=== PATIENT | female | born 1995 | race American Indian/Alaskan Native ===

== ENCOUNTER 2021-07-29 22:09 | Emergency (ER) | payer OTHER ==
[2021-07-29 22:53] VITALS: BP 103/63
[2021-07-29] MEDS ORDERED: LORazepam 2 MG/ML VIAL ONE (23:39)
[2021-07-30] MEDS ORDERED: ACETAMINOPHEN 500 MG TAB PO ONE (00:26)
[2021-07-30] MEDS ORDERED: SODIUM CHLORIDE 0.9% 1000 ML 1,000 ML IV ONE (00:26)
[2021-07-30] MEDS ORDERED: dexAMETHasone 20 MG/5 ML VIAL IV ONE (00:26)
--- NOTE | 2021-07-30 00:33 | Emergency Department Report ---
ED General Adult HPI - General Chief complaint: Headache Stated complaint: MIGRAINE/FAINT Time Seen by Provider: 07/30/21 00:03 Source: patient Mode of arrival: Ambulatory Limitations: No Limitations - History of Present Illness Initial comments: 25-year-old female patient presents emergency department with complaints of a headache starting this morning. No preceding fall, trauma, or injury. Pain is localized to the left parietal area. Patient has experienced similar headaches on prior occasions and states that these headaches typically resolve with Tylenol and/or Goody powder. However, patient took a Goody powder earlier today with no relief. The headache has been constant since onset and consistent in intensity since onset. Patient is not anticoagulated. Patient does not use exogenous hormones. Patient's last menstrual cycle was less than 2 weeks ago. Patient is not anticoagulated. There is no family history of neurological disease. Denies fever, neck stiffness, rash, nausea, vomiting, blurred vision, syncope, seizure. Denies all other complaints at this time. - Related Data Previous Rx's Medication Instructions Recorded Last Taken Type Aspirin/Acetaminophen/Caffeine 2 each PO Q6H #20 tablet 07/30/21 Unknown Rx [[facility] [id number] Gltb] Allergies Allergy/AdvReac Type Severity Reaction Status Date / Time No Known Allergies Allergy Unverified 07/29/21 22:50 ED Review of Systems ROS: Stated complaint: MIGRAINE/FAINT Other details as noted in HPI Other: GENERAL: Negative for fever, chills, weight change, anorexia, fatigue. ENT: Negative for ear pain, difficulty hearing, sore throat, nasal congestion, epistaxis. CARDIOVASCULAR: Negative for chest pain, palpitations, lower extremity swelling. PULMONARY: Negative for cough, dyspnea, wheezing, orthopnea, cyanosis. GASTROINTESTINAL: Negative for abdominal pain, nausea, vomiting, diarrhea, constipation. MUSCULOSKELETAL: Negative for joint pain, joint swelling, myalgias, back pain, neck pain. NEUROLOGICAL: Positive for headache. INTEGUMENTARY: Negative for erythema, rash, diaphoresis, laceration, ecchymosis. HEMATOLOGICAL: Negative for hemoptysis, hematemesis, hematochezia, hematuria. PSYCHIATRIC: Negative for hallucinations, suicidal ideation, homicidal ideation, anxiety, depression. ED Past Medical Hx - Medications Home Medications: Home Medications Medication Instructions Recorded Confirmed Last Taken Type Aspirin/Acetaminophen/Caffeine 2 each PO Q6H #20 tablet 07/30/21 Unknown Rx [[facility] [id number] Gltb] ED Physical Exam - General Limitations: No Limitations - Other Other exam information: General: Awake and alert. No acute distress. Head: Atraumatic, normocephalic. No temporal artery tenderness. No palpable cord. Eyes: EOMI. Pupils are equal and round, reactive to light, no nystagmus. Normal sclera and conjunctiva. ENT: Oral mucosa is moist. Normal pharyngeal exam. Neck: Supple. No lymphadenopathy. Pulmonary: No respiratory distress. Clear to auscultation bilaterally. Cardiac: Regular rate and rhythm. Pulses are palpable and equal bilaterally. No lower extremity cyanosis or edema. Skin: Warm and dry. No rashes. Abdomen: Soft, non-tender, non-protuberant. No guarding, rigidity, or rebound. Bowel sounds are normal. No organomegaly or masses noted. Back: Normal alignment. No CVA tenderness. Extremities: Symmetrical. Full range of motion intact. Neurological: Alert and oriented, appropriately interactive, no focal deficits. Strength and sensation intact throughout. Ambulatory without assistance. Normal cerebellar exam. Psych: Cooperative. Appropriate mood and affect. Speech is evenly metered. Thoughts are logically construed. ED Course Vital Signs 07/29/21 07/30/21 22:50 01:05 Temperature 97.9 F Pulse Rate 67 Respiratory 16 18 Rate Blood Pressure 103/63 O2 Sat by Pulse 100 Oximetry ED Medical Decision Making - Medical Decision Making Differential diagnosis including but not limited to: migraine, tension headache, cluster headache, temporal arteritis, meningitis/encephalitis, pseudotumor cerebri, intracranial hemorrhage, thrombotic disease Patient presents with acute atraumatic headache reaching maximum intensity within one hour of onset. After a thorough history and physical examination, it has been determined that the patient meets all of the following criteria: age 15-40, neurologically intact, full range of motion of the neck without pain/stiffness, no loss of consciousness, onset of headache was within the last 14 days and did not occur during physical exertion, and the pain did not peak instantly. The patient has no history of any of the following conditions: head trauma/fall in the last 7 days, prior aneurysm, prior subarachnoid hemorrhage, known intracranial lesion, and has experienced no more than 3 headaches of the same character and intensity in the last 6 months. It has been explained to the patient that based on the Menard Subarachnoid Hemorrhage Rule, imaging is not indicated at this time. It has been explained to the patient that the Menard rules are an adjunct decision-making tool and are not designed to replace clinical judgment. Patient has been given appropriate analgesia and will be reassessed prior to discharge home. The patient is resting comfortably and states symptoms have improved. The patient is alert, talkative, interactive and in no distress. The patient is neurovascularly intact and ambulatory in emergency department. History, exam, diagnostic testing, and current condition do not suggest worrisome pathology to warrant further testing, emergent intervention, admission, or specialist evaluation at this point. Additional testing such as CT imaging or lumbar puncture is not indicated at this time, but should be considered if symptoms worsen or recur. Discussed findings, presumptive diagnosis, need for follow-up and specific signs/symptoms that should prompt immediate return to the emergency department. Instructions were explained in detail to the patient in addition to giving written discharge information. Patient expressed understanding and was g iven the opportunity to ask questions, all of which were satisfactorily answered prior to discharge home. Critical care attestation.: If time is entered above; I have spent that time in minutes in the direct care of this critically ill patient, excluding procedure time. ED Disposition Clinical Impression: Headache Qualifiers: Headache type: unspecified Headache chronicity pattern: acute headache Intractability: not intractable Qualified Code(s): R51.9 - Headache, unspecified Disposition: 01 HOME / SELF CARE / HOMELESS Is pt being admited?: No Does the pt Need Aspirin: No Condition: Stable Instructions: Tension Headache, Adult, [id number] Additional Instructions: Take Excedrin as directed for headache. Rest. Drink plenty of fluids. Follow-up with primary care provider this week. Call Sunday to schedule an appointment. Return to the emergency department immediately for new or worsening symptoms. Specifically, return to the emergency department immediately for worsening headache, vomiting, seizure, loss of consciousness, numbness, weakness, paralysis, fever, neck stiffness, rash, abnormal bleeding/bruising, vision changes, or any other concerns. Prescriptions: Aspirin/Acetaminophen/Caffeine [[facility] [id number] Gltb] 2 each PO Q6H #20 tablet Referrals: HYCAINTH CONTRERAS MD [Staff Physician] - 3-5 Days Forms: Work/School Release Form(ED) Time of Disposition: 03:31
[2021-07-30] MEDS ORDERED: MAGNESIUM SULFATE 1 GM in SODIUM CHLORIDE 0.9% 50 ML IV ONE (01:26)
== END 2021-07-30 03:51 | disposition home or self-care (01) ==
LOC: ED 22:09
DX: R51.9 Headache, unspecified (principal)
CPT/HCPCS: 96361; 96365; 96375; 99282; J1100; J3475; J7030; J2060